=== PATIENT | female | born 1985 | race American Indian/Alaskan Native ===

== ENCOUNTER 2017-11-25 19:22 | Emergency (ER) | payer SELFPAY ==
[2017-11-25 19:30] VITALS: BP 126/64
[2017-11-25 20:00] LABS: Bilirubin,Urine NEG (Negative); Blood,Urine NEG (Negative); Color,Urine Yellow (Yellow); Mucus,Urine FEW /HPF; Nitrite,Urine NEG (Negative); Protein,Urine <15 mg/dL mg/dL (Negative); Urobilinogen,Urine < 2.0 mg/dL (<2.0)
[2017-11-25 20:29] LABS: HCG Qualitative,Urine Positive (Negative)
== END 2017-11-26 02:10 | disposition left against medical advice (07) ==
LOC: ED 19:22
DX: O26.891 Other specified pregnancy related conditions, first trimester (principal); R10.2 Pelvic and perineal pain; Z3A.01 Less than 8 weeks gestation of pregnancy; Z53.21 Procedure and treatment not carried out due to patient leaving prior to being seen by health care provider
CPT/HCPCS: 81001; 81025

== ENCOUNTER 2018-06-18 20:32 | Outpatient (CLI) | payer MEDICAID ==
--- NOTE | 2018-06-18 22:45 | Ultrasound Report ---
FINAL REPORT PROCEDURE: US OB LIMITED TECHNIQUE: Real-time limited sonographic examination was performed for evaluation of size, position, heartbeat, fluid volume for each fetus with image documentation (1 or more fetuses). CPT 18469 HISTORY: possible leakage of fluid/ SHERRON COMPARISON: No prior studies are available for comparison. FINDINGS: Amniotic fluid index is 11.5 centimeters which is within normal limits for the gestational age. Heart rate is 121 beats per minute. IMPRESSION: SHERRON equals 11.5 centimeters.
== END 2018-06-18 22:29 | disposition home or self-care (01) ==
LOC: TRG 20:32
PROVIDERS: ATTEND Obstetrics & Gynecology
DX: O42.913 Preterm premature rupture of membranes, unspecified as to length of time between rupture and onset of labor, third trimester (principal); Z3A.33 33 weeks gestation of pregnancy
CPT/HCPCS: 59025; 76815

== ENCOUNTER 2018-06-25 16:52 | Outpatient (CLI) | payer MEDICAID ==
[2018-06-25 17:10] VITALS: BP 104/62
[2018-06-25 17:49] LABS: Bacteria,Urine 1+ /HPF (Negative); Bilirubin,Urine NEG (Negative); Blood,Urine NEG (Negative); Color,Urine Yellow (Yellow); Mucus,Urine FEW /HPF; Protein,Urine <15 mg/dL mg/dL (Negative)
[2018-06-25] MEDS ORDERED: CELESTONE SOLUSPAN IM ONE (18:29)
--- NOTE | 2018-06-25 23:10 | Ultrasound Report ---
FINAL REPORT EXAM: US OB > = 14 WEEKS FETUS HISTORY: WELL BEING, SHERRON, TECHNIQUE: Real-time sonography was performed of the gravid uterus and images are submitted for interpretation. Umbilical artery cord Doppler was performed. PRIORS: None. FINDINGS: There is a normal-appearing fetus in the uterus in a cephalic presentation. The placenta is posterior and the os is clear. The amniotic fluid index is normal at 13.2 cm. The heart is beating at a rate of 129 beats per minute. Biometric measurements give an estimated gestational age of 34 weeks 4 days. anatomic structures documented include the diaphragm, stomach, bladder, three-vessel cord, cord insertion, kidneys, brain, placental cord insertion, spine, four-chamber heart. Estimated weight: 2364 grams or 5 pounds and 3 ounces. Biophysical profile: Breathin Movement: 2 Tone: 2 Fluid volume: 2 Umbilical cord duplex: Doppler tracing appears normal with forward diastolic flow. Peak systolic 52.5 cm/second End-diastolic 13.5 cm/second Resistive index 0.74, 0.70, 0.71 S/D 3.89, 3.37, 3.50 IMPRESSION: 1. Single, live intrauterine gestation, estimated gestational age 34 weeks 4 days for an estimated date of confinement of 08/02/2018. 2. Normal biophysical profile, 07/03 3. Cord resistance index is at the upper limits of normal. Systolic to diastolic ratio within normal limits. Doppler tracing appears normal.
--- NOTE | 2018-06-25 23:14 | Ultrasound Report ---
FINAL REPORT EXAM: US OB BPP WO NON-STRESS HISTORY: WELL BEING, SHERRON, TECHNIQUE: Real-time sonography was performed of the gravid uterus and images are submitted for interpretation. Umbilical artery cord Doppler was performed. PRIORS: None. FINDINGS: There is a normal-appearing fetus in the uterus in a cephalic presentation. The placenta is posterior and the os is clear. The amniotic fluid index is normal at 13.2 cm. The heart is beating at a rate of 129 beats per minute. Biometric measurements give an estimated gestational age of 34 weeks 4 days. anatomic structures documented include the diaphragm, stomach, bladder, three-vessel cord, cord insertion, kidneys, brain, placental cord insertion, spine, four-chamber heart. Estimated weight: 2364 grams or 5 pounds and 3 ounces. Biophysical profile: Breathin Movement: 2 Tone: 2 Fluid volume: 2 Umbilical cord duplex: Doppler tracing appears normal with forward diastolic flow. Peak systolic 52.5 cm/second End-diastolic 13.5 cm/second Resistive index 0.74, 0.70, 0.71 S/D 3.89, 3.37, 3.50 IMPRESSION: 1. Single, live intrauterine gestation, estimated gestational age 34 weeks 4 days for an estimated date of confinement of 08/02/2018. 2. Normal biophysical profile, 07/03 3. Cord resistance index is at the upper limits of normal. Systolic to diastolic ratio within normal limits. Doppler tracing appears normal.
--- NOTE | 2018-06-25 23:16 | Ultrasound Report ---
FINAL REPORT EXAM: US OB VELOCIMETRY UMBILCAL ART HISTORY: WELL BEING, SHERRON, TECHNIQUE: Real-time sonography was performed of the gravid uterus and images are submitted for interpretation. Umbilical artery cord Doppler was performed. PRIORS: None. FINDINGS: There is a normal-appearing fetus in the uterus in a cephalic presentation. The placenta is posterior and the os is clear. The amniotic fluid index is normal at 13.2 cm. The heart is beating at a rate of 129 beats per minute. Biometric measurements give an estimated gestational age of 34 weeks 4 days. anatomic structures documented include the diaphragm, stomach, bladder, three-vessel cord, cord insertion, kidneys, brain, placental cord insertion, spine, four-chamber heart. Estimated weight: 2364 grams or 5 pounds and 3 ounces. Biophysical profile: Breathin Movement: 2 Tone: 2 Fluid volume: 2 Umbilical cord duplex: Doppler tracing appears normal with forward diastolic flow. Peak systolic 52.5 cm/second End-diastolic 13.5 cm/second Resistive index 0.74, 0.70, 0.71 S/D 3.89, 3.37, 3.50 IMPRESSION: 1. Single, live intrauterine gestation, estimated gestational age 34 weeks 4 days for an estimated date of confinement of 08/02/2018. 2. Normal biophysical profile, 07/03 3. Cord resistance index is at the upper limits of normal. Systolic to diastolic ratio within normal limits. Doppler tracing is normal.
== END 2018-06-25 20:00 | disposition home or self-care (01) ==
LOC: TRG 16:52
PROVIDERS: ATTEND Obstetrics & Gynecology
DX: O47.03 False labor before 37 completed weeks of gestation, third trimester (principal); Z3A.34 34 weeks gestation of pregnancy
CPT/HCPCS: 36415; 76805; 76819; 76820; 81001; 82731; J0702

== ENCOUNTER 2018-06-26 19:21 | Outpatient (CLI) | payer MEDICAID ==
[2018-06-26] MEDS ORDERED: CELESTONE SOLUSPAN IM STA (19:43)
== END 2018-06-26 20:49 | disposition home or self-care (01) ==
LOC: TRG 19:21
PROVIDERS: ATTEND Obstetrics & Gynecology
DX: O47.03 False labor before 37 completed weeks of gestation, third trimester (principal); Z3A.35 35 weeks gestation of pregnancy
CPT/HCPCS: J0702

== ENCOUNTER 2018-07-10 17:13 | Outpatient (CLI) | payer MEDICAID ==
[2018-07-10] MEDS ORDERED: MAGNESIUM SULFATE 4GM/100ML 4 GM/100 ML BAG IV ONE (19:11)
[2018-07-10] MEDS ORDERED: APRESOLINE ONE (19:12)
[2018-07-10 19:26] VITALS: BP 111/68
--- NOTE | 2018-07-10 19:48 | Ultrasound Report ---
FINAL REPORT EXAM: US OB BPP WO NON-STRESS HISTORY: WELL BEING TECHNIQUE: Biophysical profile obstetrical ultrasound PRIORS: None. FINDINGS: LMP 10/25/2017 clinical Age: 36 W 6 D LMP EDC 08/01/2018 Biophysical profile scoring 2 movement 2 tone 2 breathing 2 fluid 8/8 overall score Cardiac motion: 154 BPM using M-mode doppler Amniotic Fluid Volume: Adequate IMPRESSION: Single intrauterine viable with an approximate age of 36 weeks 6 days. Biophysical profile score is 8/8
--- NOTE | 2018-07-10 20:17 | Ultrasound Report ---
FINAL REPORT EXAM: US OB FOLLOW UP HISTORY: WELL BEING TECHNIQUE: Limited obstetrical ultrasound PRIORS: Ultrasound pelvis 06/25/2018 FINDINGS: Clinical Age: 36 w 6 d US Age (average) = 36 w 1D EFW (BPD,HC,AC,FL) = 2760 g +/-408 g (6 lbs. 1 Oz. +/- 14 oz.) LMP EDC 08/01/2018 US EDC 08/06/2018 CI 86.1 (range 74 to 83) HC/AC 1.05 (range 0.93 to 1.11) FL/BPD 82.3 (range 72.4 to 88.4) FL/HC 22.8 (range 18.1 to 24.1) FL/AC 23.9 (range 20.0 to 24.0) BPD 8.9 cm corresponding to estimated age 36 weeks 1 day HC 32.2 cm corresponding to estimated age 36 weeks 2 days AC 30.7 cm corresponding to estimated age 34 weeks 4 days FL 7.3 cm corresponding to estimated age 37 weeks 4 days Presentation: Cephalic Activity: Monitored Placental location: Fundal Placental grade: 1 Cardiac motion: 154 BPM using M-mode doppler Amniotic Fluid Volume: Adequate SHERRON 11.6 cm (normal) IMPRESSION: Single intrauterine viable with an approximate age of 36 weeks 1 days.
--- NOTE | 2018-07-10 23:17 | Ultrasound Report ---
FINAL REPORT PROCEDURE: US OB VELOCIMETRY UMBILCAL ART TECHNIQUE: Real-time limited sonographic examination was performed for evaluation of size, position, heartbeat, fluid volume for each fetus with image documentation (1 or more fetuses). CPT 73252 HISTORY: WELL BEING COMPARISON: No prior studies are available for comparison. FINDINGS: The umbilical artery S/D ratio is 2.3 with normal waveform. Resistive index is 0.57. heart rate is 154 beats per minute. IMPRESSION: The umbilical artery S/D ratio is 2.3 with normal waveform. Resistive index is 0.57. heart rate is 154 beats per minute.
== END 2018-07-10 21:14 | disposition home or self-care (01) ==
LOC: TRG 17:13
PROVIDERS: ATTEND Obstetrics & Gynecology
DX: Z34.93 Encounter for supervision of normal pregnancy, unspecified, third trimester (principal); Z3A.36 36 weeks gestation of pregnancy
CPT/HCPCS: 59025; 76816; 76819; 76820; J0360; J3475

== ENCOUNTER 2021-09-08 13:13 | Outpatient (CLI) | payer MEDICAID ==
[2021-09-08 14:15] VITALS: BP 112/64
[2021-09-08] MEDS ORDERED: LACTATED RINGERS 1,000 ML IV ONE (14:28)
[2021-09-08 15:41] LABS: Bacteria,Urine 1+ /HPF (Negative); Bilirubin,Urine NEG (Negative); Blood,Urine NEG (Negative); Color,Urine Straw (Yellow); Protein,Urine <15 mg/dL mg/dL (Negative); Urobilinogen,Urine < 2.0 mg/dL (<2.0)
== END 2021-09-08 16:45 | disposition home or self-care (01) ==
LOC: TRG 13:13 → APU 13:14 → TRG 16:45
PROVIDERS: ATTEND Obstetrics & Gynecology
DX: O26.892 Other specified pregnancy related conditions, second trimester (principal); R10.9 Unspecified abdominal pain; Z3A.25 25 weeks gestation of pregnancy
CPT/HCPCS: 59025; 81001

== ENCOUNTER 2021-10-13 11:11 | Outpatient (CLI) | payer MEDICAID ==
[2021-10-13 11:53] VITALS: BP 110/68
[2021-10-13 12:14] LABS: Bilirubin,Urine NEG (Negative); Blood,Urine NEG (Negative); Color,Urine Straw (Yellow); Protein,Urine <15 mg/dL mg/dL (Negative); Urobilinogen,Urine < 2.0 mg/dL (<2.0)
[2021-10-13 12:15] LABS: Mucus,Urine FEW /HPF
[2021-10-13] MEDS ORDERED: LACTATED RINGERS 1,000 ML IV ONE (12:56)
[2021-10-13] MEDS ORDERED: DIPHENOXYLATE/ATROPINE TAB PO PRN (12:59)
== END 2021-10-13 14:20 | disposition home or self-care (01) ==
LOC: TRG 11:11 → APU 11:13 → TRG 14:20
PROVIDERS: ATTEND Obstetrics & Gynecology
DX: Z34.93 Encounter for supervision of normal pregnancy, unspecified, third trimester (principal); Z3A.30 30 weeks gestation of pregnancy
CPT/HCPCS: 81001; J7120; J3490

== ENCOUNTER 2021-11-18 22:35 | Outpatient (CLI) | payer MEDICAID ==
[2021-11-18 23:51] VITALS: BP 109/64
[2021-11-19] MEDS ORDERED: LACTATED RINGERS 1,000 ML IV ONE (00:04)
[2021-11-19 00:33] LABS: Bilirubin,Urine NEG (Negative); Blood,Urine NEG (Negative); Color,Urine Straw (Yellow); Protein,Urine <15 mg/dL mg/dL (Negative); RBC,Urine < 1.0 /HPF (0.0-6.0); Urobilinogen,Urine < 2.0 mg/dL (<2.0); WBC,Urine < 1.0 /HPF (0.0-6.0)
== END 2021-11-19 02:25 | disposition home or self-care (01) ==
LOC: TRG 22:35 → APU 22:36 → TRG 11-19 02:25
PROVIDERS: ATTEND Obstetrics & Gynecology
DX: Z34.93 Encounter for supervision of normal pregnancy, unspecified, third trimester (principal); Z3A.36 36 weeks gestation of pregnancy
CPT/HCPCS: 36415; 59025; 81001; 84112

== ENCOUNTER 2021-11-22 10:24 | Outpatient (CLI) | payer MEDICAID ==
--- NOTE | 2021-11-22 16:18 | XRay Report ---
CHEST 2 VIEWS INDICATION / CLINICAL INFORMATION: RULE OUT PNUEMONIA. COMPARISON: None available. FINDINGS: SUPPORT DEVICES: None. HEART / MEDIASTINUM: No significant abnormality. LUNGS / PLEURA: Mild increased interstitial prominence in the lung bases however no focal consolidati on No pneumothorax. Signer Name: Mynor Veliz MD Signed: 11/22/2021 4:14 PM Workstation Name: [id number]
== END 2021-11-22 12:40 | disposition left against medical advice (07) ==
LOC: TRG 10:24 → APU 10:41 → TRG 12:40
PROVIDERS: ATTEND Obstetrics & Gynecology
DX: O26.893 Other specified pregnancy related conditions, third trimester (principal); R91.8 Other nonspecific abnormal finding of lung field; R05.3 Chronic cough; R06.00 Dyspnea, unspecified; Z3A.36 36 weeks gestation of pregnancy
CPT/HCPCS: 71046

== ENCOUNTER 2021-12-06 14:50 | Outpatient (CLI) | payer MEDICAID ==
[2021-12-06 15:54] VITALS: BP 111/66
== END 2021-12-06 19:00 | disposition home or self-care (01) ==
LOC: TRG 14:50 → APU 14:50 → TRG 19:00
PROVIDERS: ATTEND Obstetrics & Gynecology
DX: O26.893 Other specified pregnancy related conditions, third trimester (principal); R10.9 Unspecified abdominal pain; Z3A.38 38 weeks gestation of pregnancy
CPT/HCPCS: 36415; 59025; 84112; Q0177

== ENCOUNTER 2021-12-09 08:09 | Inpatient (IN) | payer MEDICAID ==
--- NOTE | 2021-12-08 08:36 | History and Physical Report ---
History of Present Illness Date of examination: 12/05/21 Chief complaint: scheduled section History of present illness: Pt is a 36 year old -[place] female JUAN MIGUEL 12/16/21 at 39w0d who presents for scheduled section secondary to previous section x 1. She reports irregular contractions, and denies vaginal bleeding and leakage of fluid. She reports good movement. She has had care at [facility] complicated by anemia on iron supplementation, GERD prescribed omeprazole, h/o IUGR in prior , genital herpes without lesion or prodrome, first trimester subchorionic hemorrhage, and positive COVID 19 test on 11/23/21 with subsequent negative test, and undesired fertility. She is GBS negative. 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 History: herpes (wihtout lesion or prodrome ) Family/Genetic History: hypertension, cancer Social history: no significant social history, - Obstetrical History Expected Date of Delivery: 12/16/21 Actual Gestation: 38 Week(s) 6 Day(s) : 3 Para: 2 Hx # Term Pregnancies: 2 Number of Pregnancies: 0 Spontaneous Abortions: 0 Induced : 0 Number of Living Children: 2 Medications and Allergies Allergies Allergy/AdvReac Type Severity Reaction Status Date / Time No Known Allergies Allergy Verified 11/25/17 19:28 Home Medications Medication Instructions Recorded Confirmed Last Taken Type Ferrous Sulfate 325 mg PO BID #60 tablet. 07/19/18 Unknown Rx Ibuprofen [Motrin] 600 mg PO Q8H PRN #30 tablet 07/19/18 Unknown Rx oxyCODONE /ACETAMINOPHEN [Percocet 1 tab PO Q6HR PRN #30 tablet 07/19/18 Unknown Rx 5/325] Review of Systems All systems: negative - Physical Exam Breasts: Positive: deferred Abdomen: Positive: soft (gravid ) Uterus: Positive: enlarged (gravid ) Extremities: Positive: edema (trace ) - Obstetrical FHR: auscultation normal Uterine Contraction Monitor Mode: External Uterine Contraction Pattern: Irregular Results All other labs normal. Assessment and Plan A: IUP at 39w0d Previous x 1 Undesired Fertility- consent signed and on chart Recent COVID 19 infection with negative test Anemia on iron supplemtation GERD Genital herpes without lesion or prodrome GBS Negative P: Proceed with repeat section, bilateral tubal ligation and other indicated procedures
[~2021-12-09 08:09] MED LIST: BICITRA ORAL LIQD 30ML PO NR; FAMOTIDINE 20 MG/2 ML INJ IV NR; LACTATED RINGERS 1,000 ML IV SCH; METOCLOPRAMIDE 10 MG/2 ML INJ IV NR; OXYTOCIN DRIP 30 UNITS/500 ML BAG IV SCH; ceFAZolin/Water 2 GM/20 ML 2 GM/20 ML SYRINGE IV NR
[2021-12-09 09:27] LABS: Basophils % (Auto) 0.6 % (0.0-1.8); Eosinophils # (Auto) 0.3 K/mm3 (0.0-0.4); Eosinophils % (Auto) 3.4 % (0.0-4.3); Hematocrit 30.5 % (30.3-42.9); Lymphocytes % (Auto) 26.5 % (13.4-35.0); Mean Corpuscular HGB Conc 33 % (30-34); Mean Corpuscular Volume 84 fl (79-97); Monocytes # (Auto) 0.5 K/mm3 (0.0-0.8); Monocytes % (Auto) 6.8 % (0.0-7.3); Platelet Count 248 K/mm3 (140-440); Red Blood Count 3.66 M/mm3 (3.65-5.03); Red Cell Distribution Width 14.7 % (13.2-15.2)
--- NOTE | 2021-12-09 10:37 | Anesthesia Day of Surgery ---
Anesthesia Day of Surgery - Day of Surgery Patient Examined: Yes Patient H&P Reviewed: Yes Patient is NPO: Yes Beta Blockers: No Cardiac Clearance: No Pulmonary Clearance: No Tuan's Test: Negative
--- NOTE | 2021-12-09 10:41 | Anesthesia Consultation ---
Anesthesia Consult and Med Hx Date of service: 12/09/21 - Airway Anesthetic Teeth Evaluation: Poor ROM Head & Neck: Adequate Mental/Hyoid Distance: Adequate Mallampati Class: Class II Intubation Access Assessment: Probably Good - Pulmonary Exam CTA: Yes - Cardiac Exam Cardiac Exam: RRR - Pre-Operative Health Status ASA Pre-Surgery Classification: ASA2 Proposed Anesthetic Plan: Spinal - Pulmonary Hx Smoking: Yes (former ) Hx Asthma: No Hx Respiratory Symptoms: No SOB: No COPD: No Home Oxygen Therapy: No Hx Pneumonia: Yes (2007) Hx Sleep Apnea: No - Cardiovascular System Hx Hypertension: No Hx Coronary Artery Disease: No Hx Heart Attack/AMI: No Hx Angina: No Hx Percutaneous Transluminal Coronary Angioplasty (PTCA): No Hx Cardia Arrhythmia: No Hx Pacemaker: No Hx Internal Defibrillator: No Hx Valvular Heart Disease: No Hx Heart Murmur: No Hx Peripheral Vascular Disease: No - Central Nervous System Hx Neuromuscular Disorder: No Hx Seizures: No CVA: No Hx Back Pain: Yes Hx Psychiatric Problems: No - Gastrointestinal Hx Ulcer: No Hx Gastroesophageal Reflux Disease: No - Endocrine Hx Renal Disease: No Hx End Stage Renal Disease: No Hx Cirrhosis: No Hx Liver Disease: No Hx Insulin Dependent Diabetes: No Hx Non-Insulin Dependent Diabetes: No Hx Thyroid Disease: No Hx Hypothyroidism: No Hx Hyperthyroidism: No - Hematic Hx Anemia: Yes (precribed iron but have not been taken them) Hx Sickle Cell Disease: No - Other Systems Hx Alcohol Use: No Hx Substance Use: No Hx Cancer: No Hx Obesity: Yes
[2021-12-09] MEDS ORDERED: ceFAZolin/STERILE WATER 2 GM/20 ML SYRINGE IV ONE (12:10)
[2021-12-09] MEDS ORDERED: LACTATED RINGERS 1,000 ML ONE (12:15)
[2021-12-09] MEDS ORDERED: ONDANSETRON 4 MG/2 ML INJ ONE (12:15)
[2021-12-09] MEDS ORDERED: PHENYLEPHRINE/NS 1,000 MCG/10 ML SYRINGE (OR USE) IV ONE (12:34)
[2021-12-09] MEDS ORDERED: dexAMETHasone 20 MG/5 ML VIAL ONE (12:34)
[2021-12-09] MEDS ORDERED: BUPIVACAINE/PF (0.5%) 5 MG/1 ML 30 ML VIAL INFILTRATI ONE (12:34)
[2021-12-09] MEDS ORDERED: OXYTOCIN 10 UNIT/1 ML INJ ONE (12:45)
[2021-12-09] MEDS ORDERED: miSOPROStol 200 MCG TAB ONE (12:48)
[2021-12-09] MEDS ORDERED: METHYLERGONOVINE MALEATE 0.2 MG/ML VIAL IM ONE (12:49)
[2021-12-09] MEDS ORDERED: CARBOPROST TROMETHAMINE 250 MCG/1 ML INJ IM ONE (12:50)
--- NOTE | 2021-12-09 13:44 | Procedure Note ---
OB Delivery Note - Delivery Date of Delivery: 12/09/21 Surgeon: EDWAR HILL Estimated blood loss: other (1410 mL) - Section Preop diagnosis: repeat Postop diagnosis: same section procedure: section, repeat low transverse Disposition: PACU Complications: intra-op hemorrhage, uterine atony Narrative: Please see operative report. - Infant A at 1 minute: 8 at 5 minutes: 9 Infant Gender: Male (3480g (7lb 11oz) @ 1242 pm)
--- NOTE | 2021-12-09 13:57 | Progress Note ---
Spinal Anesthesia Block - Spinal Anesthesia Block Start Time: 11:58 Stop Time: 12:01 Performed by:: WILBUR SLAUGHTER Procedure: Patient IDed, H&P reviewed, all questions and concerns were answered, and consent was signed. Timeout was performed at bedside. Patient in sitting position. Sterile prep and drape was performed. [3] ml of 1% lidocaine skin wheal at L[3]- L [4]. Needle introducer advanced. 25 gauge spinal needle advanced. Clear, free flowing CSF. negative blood, negative paresthesia. Spinal dose given. All needles removed. Patient tolerated procedure.
--- NOTE | 2021-12-09 13:59 | Progress Note ---
Regional Anesthesia Block - Regional Anesthesia Block Start Time: 13:40 Stop Time: 13:40 Performed By:: WILBUR SLAUGHTER Procedure: Patient consented for TAP block for post surgical pain management. Patient identified, monitors placed, and time out performed. TAP identified bilaterally via ultrasound. Skin prepped bilaterally with [chlorhexidine] and [22g stimuplex] needle advanced to the TAP. [Marcaine 0.25% 30ml] injected under ultrasound guidance on the [left] side. [Marcaine 0.25% 30ml] injected under ultrasound guidance on the [right] side. Negative aspiration every 5mL, No change in heart rate or rhythm. Patient tolerated the procedure well. No apparent complications seen.
--- NOTE | 2021-12-09 14:03 | Operative Report ---
Operative Report Operative Report: Date of procedure: December 09, 2021 Preoperative diagnosis: 1) IUP at 39w0d 2) Previous x 1 3) Anemia 4) Undesired Fertility Postoperative diagnosis: Same 5) Intraoperative Hemorrhage 6) Uterine Atony Procedure: 1) Repeat low transverse section 2) Bilateral tubal ligation via Filshie clip method Surgeon: Portia Corea M.D. Anesthesia: Regional Findings: 1) Viable male , Apgars 9 and 9, weight 3480, (7lb 11 oz) in cephalic presentation. Tight Nuchal cord x 2 2) Normal appearing ovaries and tubes Estimated blood loss: 1410 mL Urine output: 250 mL, clear at the end of the procedure Drains: [place] to gravity Specimens: None Medications: Additional 10 units of pitocin in IV fluid, Methergine 0.2 mg IM and Misoprostol 800 mcg per rectum Complications: Hemorrhage Disposition: Stable to PACU Indication for procedure: Pt is a 36 year old -[place] at 39w0d with one prior section and undesired fertility who presents for scheduled repeat section and tubal ligation. Operation in Detail: After the risks, benefits, alternatives and complications were explained to the patient she gave informed consent for the procedure. She was subsequently taken to the operating room where regional anesthesia was noted to be adequate. SCDs were noted to be in place and functioning. She was then placed in the dorsal supine position with leftward tilt and prepped and draped in a normal sterile fashion. heart tones were noted prior to incision. A timeout was performed. A Pfannenstiel skin incision was made with the knife and carried down to the layer of the fascia with the Bovie. The fascia was incised in the midline and the fascial incision was extended bilaterally with the Bovie. The fascial incision was then stretched. The rectus muscles were then in the midline and partially transected for adequate visualization. The peritoneum was then entered sharply between two Casie clamps. The peritoneal incision was extended with good visualization of the bladder. The peritoneal incision was then stretched. An Christian retractor was placed. The bladder blade was placed. The vesicouterine peritoneum was grasped with smooth pick ups and incised with Metzenbaum scissos. A bladder flap was created and the bladder blade was replaced. A transverse incision was made with a knife in the lower uterine segment. The hysterotomy was stretched. The head was delivered without difficulty, tight double nuchal cord was doubly clamped and cut, followed by delivery of the shoulders and body. was bulb suctioned at delivery. The was handed to NICU staff in attendance. The placenta was then delivered manually. The uterus was exteriorized and cleared of all clots and debris. The uterus was noted to be atonic at this time. IV Pitocin was started and the patient was given a dose of Methergine 0.2 mg IM with improvement in uterine tone. The hysterotomy was then reapproximated with 0 Monocryl in a running locked fashion. A second 0 Monocryl suture was used in an imbricated fashion. The hysterotomy was inspected and hemostasis was noted. Attention was then turned to the tubal ligation. In the interest of patient safety and minimizing further bleeding, the decision was made to perform tubal ligatin via Filshie clip method. The left tube was identified, grasped with a nidia and followed out to the fimbriae. Two Filshie clips were placed across the ampullary portion of the left fallopian tube. The right tube was then identified, followed out to the fimbriae and two Filshie clips were placed across the ampullary portion of the right fallopian tube. Hemostasis was noted. The uterus was returned to the peritoneal cavity. The gutters were irrigated and cleared of all clots and debris. The hysterotomy was again inspected and noted to be hemostatic. Surgicel was placed over the hysterotomy. The Christian retractor was removed. The peritoneum was reapproximated with 0 Monocryl in a running fashion incorporating the rectus muscles. Surgicel was placed over the rectus muscles. The fascia was reapproximated with 0-Vicryl in a running fashion. The skin was reapproximated with 4-0 Monocryl in a subcuticular fashion. The incision was then covered with a pressure dressing. The procedure was then ended. The patient tolerated the procedure well and was taken to the PACU in stable condition. All instrument, lap, and needle counts were correct 3.
[2021-12-09] MEDS ORDERED: MEPERIDINE 25 MG/1 ML INJ IV PRN (14:42)
[2021-12-09] MEDS ORDERED: miSOPROStol 200 MCG TAB PR ONE (14:59)
[2021-12-09] MEDS ORDERED: MAGNESIUM HYDROXIDE (MOM) ORAL LIQD UDC PO PRN (16:13)
[2021-12-09] MEDS ORDERED: OXYTOCIN DRIP 30 UNITS/500 ML BAG IV SCH (16:13)
[2021-12-09] MEDS ORDERED: ONDANSETRON 4 MG/2 ML INJ IV PRN (16:13)
[2021-12-09] MEDS ORDERED: NALOXONE 0.4 MG/1 ML INJ IV PRN (16:13)
[2021-12-09] MEDS ORDERED: WITCH HAZEL/ GLYCERIN PAD TP PRN (16:13)
[2021-12-09] MEDS ORDERED: LANOLIN/ZINC/DIMETHICONE (LANSINOH) 7 GM TP PRN (16:13)
[2021-12-09] MEDS ORDERED: SIMETHICONE 80 MG CHEW TAB PO PRN (16:13)
[2021-12-09] MEDS ORDERED: MORPHINE 2 MG/1 ML INJ IV PRN (16:13)
[2021-12-09] MEDS ORDERED: ACETAMINOPHEN 325 MG TAB PO PRN (16:13)
[2021-12-09] MEDS ORDERED: MORPHINE 4 MG/1 ML INJ IV PRN (16:13)
[2021-12-09 16:31] LABS: Hematocrit 29.5 % (30.3-42.9); Hemoglobin 9.4 gm/dl (10.1-14.3)
[2021-12-09] MEDS ORDERED: D5W/LACTATED RINGERS 1,000 ML IV SCH (17:00)
[2021-12-09] MEDS: KETOROLAC 30 MG/1 ML INJ IV SCH ×2 (17:11→23:09)
[2021-12-09] MEDS: ceFAZolin/NS 1 GM/50 ML 1 GM/50 ML BAG IV SCH (20:11)
[2021-12-10 00:49] LABS: Hematocrit 28.4 % (30.3-42.9); Hemoglobin 9.2 gm/dl (10.1-14.3)
[2021-12-10] MEDS: oxyCODONE /ACETAMINOPHEN 5-325MG TAB PO PRN ×5 (02:03→20:57)
[2021-12-10] MEDS: ceFAZolin/NS 1 GM/50 ML 1 GM/50 ML BAG IV SCH (04:34)
[2021-12-10] MEDS ORDERED: TETANUS,DIPH,PERTUSS(ACELL) VACCINE 0.5 ML SYRINGE IM ONE (06:00)
--- NOTE | 2021-12-10 11:26 | Post Anesthesia Evaluation ---
- Post Anesthesia Evaluation Patient Participated: Yes Airway Patent: Yes Stable Respiratory Function: Yes Nausea/Vomiting: No Temp > 96.8F: Yes Pain Manageable: Yes Adequeate Hydration: Yes Anesthesia Complications: No Block Receding Appropriately: Yes Patient on Ventilator: No
[2021-12-10] MEDS: IBUPROFEN 800 MG TAB PO PRN (14:02)
[2021-12-10] MEDS ORDERED: MEASLES, MUMPS & RUBELLA 12,500 UNIT/0.5 ML VACCINE SUB-Q ONE (14:05)
--- NOTE | 2021-12-10 14:25 | Progress Note ---
Assessment and Plan - Patient Problems (1) S/P section Status: Acute Plan to address problem: Continue routine PP orders Keep dressing clean and dry, remove on POD#2 Anticipate d/c home in 24-487 hrs if stable (2) Anemia Status: Acute Qualifiers: Anemia type: unspecified type Qualified Code(s): D64.9 - Anemia, unspecified Plan to address problem: Asymptomatic Increase iron rich foods into diet (3) Status post tubal ligation at time of delivery, current hospitalization Status: Acute Subjective - Subjective Date of service: 12/10/21 Principal diagnosis: S/P repeat C/S; POD#1 Interval history: Pt is a 36 year old -[place] female JUAN MIGUEL 12/16/21 at 39w0d who presents for scheduled section secondary to previous section x 1. She reports irregular contractions, and denies vaginal bleeding and leakage of fluid. She reports good movement. She has had care at [facility] complicated by anemia on iron supplementation, GERD prescribed omeprazole, h/o IUGR in prior , genital herpes without lesion or prodrome, first trimester subchorionic hemorrhage, and positive COVID 19 test on 11/23/21 with subsequent negative test, and undesired fertility. She is GBS negative. Patient reports: appetite normal, voiding normally, pain well controlled (with medication), flatus, ambulating normally [place]: doing well Objective - Vital Signs Latest vital signs: Vital Signs Temp Pulse Resp BP BP Pulse Ox Pulse Ox 12/10/21 08:00 98.2 F 79 20 104/44 100 12/10/21 06:23 18 12/10/21 05:50 98.1 F 68 18 97/52 96 12/10/21 02:03 18 12/10/21 01:57 98.1 F 78 18 115/73 97 12/09/21 23:09 18 12/09/21 20:48 99.6 F 87 18 109/62 96 12/09/21 20:23 97 12/09/21 20:11 18 12/09/21 16:24 99.5 F 89 18 121/59 98 12/09/21 16:17 97 12/09/21 15:05 102 H 17 139/71 98 12/09/21 14:50 98 H 15 136/72 100 12/09/21 14:35 98.3 F 93 H 25 H 145/49 100 Intake and Output 12/09/21 12/10/21 12/10/21 23:59 07:59 15:59 Intake Total 50 720 360 Output Total 800 2300 Balance -750 -1580 360 Intake: IV 50 ANCEF/NS 1 GM/50 ML 1 gm 50 In 50 ml @ 100 mls/hr IV Q8H [facility] Rx#:[id number] Oral 360 Intake, Free Water 720 Output: Urine 800 2300 Indwelling Catheter 800 1100 Void 1200 Other: Total, Intake Amount 120 Total, Output Amount 800 300 # Voids Void 1 1 - Exam Breasts: Present: normal Cardiovascular: Present: Normal S1 Lungs: Present: Normal air movement Abdomen: Present: soft, tenderness Uterus: Present: firm, fundal height below umbilicus (U-2) Extremities: Present: normal Deep Tendon Reflex Grade: Normal +2 Incision: Present: dressed (no shadow drainage or bleeding noted) - Labs Labs: Abnormal lab results 12/09/21 12/10/21 Range/Units 16:14 00:28 Hgb 9.4 L 9.2 L (10.1-14.3) gm/dl Hct 29.5 L 28.4 L (30.3-42.9) %
[2021-12-11] MEDS: oxyCODONE /ACETAMINOPHEN 5-325MG TAB PO PRN ×5 (00:43→22:15)
[2021-12-11] MEDS: IBUPROFEN 800 MG TAB PO PRN ×2 (02:25→10:29)
--- NOTE | 2021-12-11 13:04 | Progress Note ---
Assessment and Plan A: POD#2 s/p repeat Routine postop care P: Routine postop care Lactulose PRN Subjective - Subjective Date of service: 12/11/21 Principal diagnosis: S/P repeat C/S; POD#2 Interval history: Pt reports suboptimal pain control. + flatus. No bowel movement. Patient reports: appetite normal, voiding normally, pain well controlled, flatus, ambulating normally, no bowel movement : doing well Objective - Vital Signs Latest vital signs: Vital Signs Temp Pulse Resp BP Pulse Ox Pulse Ox 12/11/21 08:20 98 12/11/21 08:16 97.4 F L 65 18 91/59 97 12/11/21 00:36 97.7 F 71 20 105/65 98 12/10/21 20:57 100 12/10/21 15:17 98.2 F 83 18 101/70 100 Intake and Output 12/10/21 12/11/21 12/11/21 22:59 06:59 14:59 Intake Total 560 Balance 560 Intake: Oral 320 Intake, Free Water 240 Other: Total, Intake Amount 320 # Voids Void 1 - Exam Breasts: Present: deferred Abdomen: Present: soft Uterus: Present: fundal height below umbilicus Extremities: Present: edema (trace ) Incision: Present: dressed
[2021-12-11] MEDS: IBUPROFEN 800 MG TAB PO SCH ×2 (16:01→22:15)
[2021-12-11] MEDS: LACTULOSE 20 GM/30 ML ORAL LIQD PO SCH ×2 (16:41→22:14)
[2021-12-12] MEDS: oxyCODONE /ACETAMINOPHEN 5-325MG TAB PO PRN (04:47)
[2021-12-12] MEDS: IBUPROFEN 800 MG TAB PO SCH (06:19)
[2021-12-12] MEDS: LACTULOSE 20 GM/30 ML ORAL LIQD PO SCH (06:19)
--- NOTE | 2021-12-12 08:14 | Discharge Summary ---
Providers - Providers Date of Admission: 12/09/21 08:09 Date of discharge: 12/12/21 Attending physician: EDWAR COREA 12/09/21 16:13 Consult to Family Service Caseworker [CONS] Routine Reason For Exam: Primary care physician: EDWAR COREA Hospitalization Reason for admission: section Delivery: Procedure: section, bilateral tubal ligation, repeat low transverse Procedure details: Please see operative report Episiotomy: none Laceration: none Incision: intact (with steri strips ) Other procedures: none complications: none Discharge diagnosis: IUP at term delivered baby: male Hospital course: Patient was admitted for scheduled repeat section with bilateral tubal ligation which she tolerated well. Her postoperative course was uncomplicated and she met discharge criteria on postoperative day 3. She will follow-up in the office with Dr. Corea in 1 week. Condition at discharge: Stable Disposition: 01 HOME / SELF CARE / HOMELESS - Discharge Diagnoses (1) Term of male Status: Acute (2) Anemia Status: Acute Qualifiers: Anemia type: unspecified type Qualified Code(s): D64.9 - Anemia, unspecified (3) Status post tubal ligation at time of delivery, current hospitalization Status: Acute (4) Obesity Status: Acute Qualifiers: Obesity type: unspecified obesity type Serious obesity comorbidity presence: unspecified whether serious comorbidity present Body mass index: unspecified BMI (5) S/P section Status: Acute Plan - Discharge Medications Prescriptions: Ferrous Sulfate [Feosol 325 MG tab] 325 mg PO BID #60 tablet Ibuprofen [Motrin] 800 mg PO Q8HR PRN #30 tablet PRN Reason: Pain, Moderate (4-6) oxyCODONE /ACETAMINOPHEN [Percocet 5/325] 1 tab PO Q6HR PRN #30 tablet PRN Reason: Pain - Provider Discharge Summary Activity: routine, no sex for 6 weeks, no heavy lifting 4 weeks, no strenuous exercise Diet: routine Instructions: routine Additional instructions: [] Smoking cessation referral if applicable(refer to patient education folder for contact #) [] Refer to [facility] Booklet Call your doctor immediately for: * Fever > 100.5 * Heavy vaginal bleeding ( >1 pad per hour) * Severe persistent headache * Shortness of breath * Reddened, hot, painful area to leg or breast * Drainage or odor from incision. * Keep incision clean and dry at all times and follow doctor's instructions regarding bathing/showering - Follow up plan Follow up: EDWAR COREA MD [Primary Care Provider] - 7 Days
--- NOTE | 2021-12-12 08:14 | Progress Note ---
Assessment and Plan A: POD#3 s/p repeat Acute on chronic blood loss anemia P: Routine postop care Discharge home with follow up in 1 wk Subjective - Subjective Date of service: 12/12/21 Principal diagnosis: S/P repeat C/S; POD#3 Interval history: Pain control improving. +flatus. No bowel movement yet. Tolerating regular diet without nausea. Decreasing lochia. Patient reports: appetite normal, voiding normally, pain well controlled, flatus, ambulating normally, no bowel movement : doing well Objective - Vital Signs Latest vital signs: Vital Signs Temp Pulse Resp BP Pulse Ox Pulse Ox 12/12/21 07:19 18 12/12/21 06:19 18 12/12/21 05:47 18 12/12/21 04:47 18 12/12/21 00:04 98.1 F 65 20 97/66 99 12/11/21 23:15 18 12/11/21 22:15 18 12/11/21 19:35 100 12/11/21 19:18 18 12/11/21 17:33 97.8 F 87 18 112/63 99 12/11/21 12:46 75 18 102/64 99 12/11/21 08:20 98 12/11/21 08:16 97.4 F L 65 18 91/59 97 Intake and Output 12/11/21 12/12/21 12/12/21 22:59 06:59 14:59 Intake Total 720 Balance 720 Intake: Oral 720 Other: Total, Intake Amount 240 # Voids Void 5 1 - Exam Breasts: Present: deferred Abdomen: Present: soft, distention (mild ) Uterus: Present: fundal height below umbilicus Extremities: Present: normal Incision: Present: intact (with steri strips )
[2021-12-12 08:45] VITALS: BP 110/79
== END 2021-12-12 11:20 | disposition home or self-care (01) | DRG 765 ==
LOC: APU 08:09 → OB 15:35
PROVIDERS: ADMIT Obstetrics & Gynecology; ATTEND Obstetrics & Gynecology
PROC: 10D00Z1 Extraction of Products of Conception, Low, Open Approach (ICD-10-PCS; principal; 2021-12-09)
PROC: 0UB70ZZ Excision of Bilateral Fallopian Tubes, Open Approach (ICD-10-PCS; 2021-12-09)
PROC: 3E0234Z Introduction of Serum, Toxoid and Vaccine into Muscle, Percutaneous Approach (ICD-10-PCS; 2021-12-10)
PROC: 3E0134Z Introduction of Serum, Toxoid and Vaccine into Subcutaneous Tissue, Percutaneous Approach (ICD-10-PCS; 2021-12-10)
DX: O34.211 Maternal care for low transverse scar from previous cesarean delivery (principal); O98.32 Other infections with a predominantly sexual mode of transmission complicating childbirth; O72.1 Other immediate postpartum hemorrhage; D62 Acute posthemorrhagic anemia; Z20.822 Contact with and (suspected) exposure to COVID-19; A60.00 Herpesviral infection of urogenital system, unspecified; O99.62 Diseases of the digestive system complicating childbirth; O99.02 Anemia complicating childbirth; O99.214 Obesity complicating childbirth; O69.1XX0 Labor and delivery complicated by cord around neck, with compression, not applicable or unspecified; Z3A.39 39 weeks gestation of pregnancy; Z37.0 Single live birth; Z23 Encounter for immunization; K21.9 Gastro-esophageal reflux disease without esophagitis; Z80.9 Family history of malignant neoplasm, unspecified; Z82.49 Family history of ischemic heart disease and other diseases of the circulatory system; Z30.2 Encounter for sterilization
CPT/HCPCS: 36415; 59025; 84112; 85014; 85018; 85025; 86592; 86850; 86900; 86901; G0378; J3490; J7060; J7121; J0690; J1100; J1885; J2175; J2270; J2370; J2405; J2590; J2765; J7120; Q0177; U0003